=== PATIENT | female | born 2000 | race Caucasian/White ===

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

== ENCOUNTER 2018-12-05 14:56 | Emergency (ER) | payer OTHER ==
[2018-12-05] MEDS ORDERED: HYDROcodone/ACETAMIN 5-325 MG* 1 TAB PO ONE (15:17)
[2018-12-05] MEDS ORDERED: Silver Sulfadiazine 1%* 20 GM TOPICAL ONE (16:18)
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
[2018-12-05 17:21] VITALS: BP 106/82
== END 2018-12-05 17:00 | disposition home or self-care (01) ==
LOC: ED 14:56
DX: T20.26XA Burn of second degree of forehead and cheek, initial encounter (principal); Z88.0 Allergy status to penicillin; X10.2XXA Contact with fats and cooking oils, initial encounter; Y92.9 Unspecified place or not applicable
CPT/HCPCS: 99282; A9270-GY

== ENCOUNTER 2019-02-19 07:30 | Emergency (ER) | payer OTHER ==
[2019-02-19] MEDS ORDERED: Lidocaine 1%* 5 ML VIAL INJ ONE (07:48)
[2019-02-19] MEDS ORDERED: Lidocaine 1% INJ* 10 MG/ML 30 ML SDV ONE (07:48)
[2019-02-19 09:07] VITALS: BP 106/70
--- NOTE | 2019-02-19 11:03 | ED ---
Upper Extremity Pain - HPI Summary HPI Summary: Patient is a 19-year-old female presents emergency department for a right elbow injury and laceration that occurred today. Patient states she slipped going down steps and hit her right elbow on a broken piece of glass on a picture frame. Patient denies head injury or loss of consciousness. Symptoms are mild in severity. Patient notes last tetanus immunization was within 5 years. Moving arm makes symptoms worse. Rest makes symptoms better. - History of Current Complaint Chief Complaint: EDLacSutureRecheck Stated Complaint: RIGHT ELBOW LACERATION PER PT Time Seen by Provider: 02/19/19 07:42 Hx Obtained From: Patient Hx Last Menstrual Period: 01/02/17 - Allergies/Home Medications Allergies/Adverse Reactions: Allergies Allergy/AdvReac Type Severity Reaction Status Date / Time amoxicillin Allergy Rash Verified 02/19/19 07:34 cephalexin Allergy Rash Verified 02/19/19 07:34 Home Medications: Home Medications NK [No Home Medications Reported] 02/19/19 [History Confirmed 02/19/19] PMH/Surg Hx/FS Hx/Imm Hx Previously Healthy: Yes - Surgical History Surgery Procedure, Year, and Place: bilateral ear tubes Infectious Disease History: No Infectious Disease History: Denies: Traveled Outside the [place] in Last 30 Days - Family History Known Family History: Positive: Non-Contributory Negative: Renal Disease - Social History Occupation: Employed Full-time Lives: With Family Alcohol Use: None Hx Substance Use: No Substance Use Type: Reports: None Hx Tobacco Use: No Smoking Status (MU): Never Smoked Tobacco Review of Systems Positive: Other - right arm injury Positive: Other - right arm laceration Neurological: Negative Negative: Headache, Syncope All Other Systems Reviewed And Are Negative: Yes Physical Exam Triage Information Reviewed: Yes Vital Signs On Initial Exam: Initial Vitals Temp Pulse Resp BP Pulse Ox 98.3 F 77 16 127/89 97 02/19/19 07:34 02/19/19 07:34 02/19/19 07:34 02/19/19 07:34 02/19/19 07:34 Vital Signs Reviewed: Yes Appearance: Positive: Well-Appearing - Pt. sitting on bed in NAD. Family present. Skin: Positive: Warm, Dry Head/Face: Positive: Normal Head/Face Inspection Eyes: Positive: Normal, EOMI Neck: Positive: Supple Musculoskeletal: Positive: Other - 2cm triangular shaped superficial laceration noted over lateral aspect of the right elbow. Bony tenderness to elbow with full ROM. Neurological: Positive: Normal, CN Intact II-III Psychiatric: Positive: Affect/Mood Appropriate Procedures - Laceration/Wound Repair 1 Location: upper extremity Description: Irregular Anesthesia: Local, 1.0%, [place] Length, Depth and Shape: 2cm triangle Betadine Prep?: No - hibiclens Laceration/Wound Explored: clean Closure: Single Layer Suture Type: Nylon Number of Sutures: 4 Layer Closure?: No Sterile Dressing Applied?: Yes Diagnostics - Vital Signs Vital Signs Temp Pulse Resp BP Pulse Ox 02/19/19 09:06 98.8 F 79 16 106/70 99 02/19/19 07:34 98.3 F 77 16 127/89 97 - Laboratory Lab Statement: Any lab studies that have been ordered have been reviewed, and results considered in the medical decision making process. Course/Dx - Course Course Of Treatment: Patient presenting with isolated right elbow injury and laceration. X-ray negative for fracture dislocation, reading per radiology. Laceration is repaired as noted above. Advised suture removal in 7-10 days. Keep the wound clean and dry. Ice and elevate intermittently. To return to the ER for redness, swelling or drainage from wound. Patient understands and agrees with plan. - Diagnoses Differential Diagnosis/HQI/PQRI: Positive: Contusion, Fracture (Closed), Hematoma, Strain, Sprain Provider Diagnoses: Laceration, Elbow contusion Discharge - Sign-Out/Discharge Documenting (check all that apply): Patient Departure Patient Received Moderate/Deep Sedation with Procedure: No - Discharge Plan Condition: Improved Disposition: HOME Patient Education Materials: Care For Your Stitches (ED) Referrals: Danny Borjas MD [Primary Care Provider] - Additional Instructions: Suture removal in 7-10 days Keep wound clean and dry Tylenol or Motrin for pain as directed Return to ER for redness, swelling, or drainage from wound - Billing Disposition and Condition Condition: IMPROVED Disposition: Home
== END 2019-02-19 09:06 | disposition home or self-care (01) ==
LOC: ED 07:30
DX: S51.011A Laceration without foreign body of right elbow, initial encounter (principal); S50.01XA Contusion of right elbow, initial encounter; W01.198A Fall on same level from slipping, tripping and stumbling with subsequent striking against other object, initial encounter; Y92.9 Unspecified place or not applicable; Z88.1 Allergy status to other antibiotic agents; Z88.0 Allergy status to penicillin
CPT/HCPCS: 12001; 99282

== ENCOUNTER 2019-10-15 17:38 | Emergency (ER) | payer OTHER ==
[2019-10-15 20:51] LABS: ABS Eosinophils 1.7 10^3/ul (0-0.6); ABS Lymphocytes 3.1 10^3/ul (1.0-4.8); ABS Monocytes 0.7 10^3/ul (0-0.8); ABS Neutrophils 6.4 10^3/ul (1.5-7.7); Eosinophil % 14.2 %; Hematocrit 43 % (35-47); Hemoglobin 14.6 g/dL (12.0-16.0); Lymphocyte % 26.1 %; Mean Corpuscular HGB Conc 34 g/dL (31-36); Mean Corpuscular Hemoglobin 31 pg (27-31); Mean Corpuscular Volume 91 fL (80-97); Mean Platelet Volume 7.5 fL (7.4-10.4); Platelet Count 290 10^3/uL (150-450); Red Blood Count 4.66 10^6 /uL (3.70-4.87); Red Cell Distribution Width 12 % (10-15); White Blood Count 11.9 10^3/uL (3.5-10.8)
[2019-10-15 21:09] LABS: ALT 9 U/L (7-52); AST 15 U/L (13-39); Albumin 4.5 g/dL (3.2-5.2); Albumin/Globulin Ratio 1.6 (1-3); Alkaline Phosphatase 100 U/L (34-104); Anion Gap 5 mmol/L (2-11); BUN/Creatinine Ratio 21.7 (8-20); Blood Urea Nitrogen 13 mg/dL (6-24); C Reactive Protein < 1.00 mg/L (<8.01); CO2 Carbon Dioxide 26 mmol/L (22-32); Calcium 9.7 mg/dL (8.6-10.3); Chloride 107 mmol/L (101-111); EGFR African American 152.7 (>60); EGFR Non-African American 126.2 (>60); Globulin 2.8 g/dL (2-4); Glucose 80 mg/dL (70-100); Potassium 3.8 mmol/L (3.5-5.0); Sodium 138 mmol/L (135-145); Total Protein 7.3 g/dL (6.4-8.9)
[2019-10-15 21:15] LABS: HCG Pregnancy < 0.60 mIU/mL
--- NOTE | 2019-10-15 21:24 | ED ---
Abdominal Pain/Female - HPI Summary HPI Summary: Patient is a 19 y/o F presenting to [facility] with complaints of intermittent diffuse chest and abdominal pain for the past week. She states that her episodes onset suddenly, last around an hour, and then resolve completely. Episodes of pain have awoken her at night. Around 1130/1200 today, 10/15/19, she had onset of a severe episode of pain and SOB secondary to this pain. appetite, vomiting and diarrhea are denied. Some nausea is endorsed. She denies similar previous episodes, PSHx of abdominal surgeries. PMHx of ADHD is noted. On triage, pain is rated 7/10. Home medications and allergies are reviewed. - History of Current Complaint Chief Complaint: EDAbdPain Stated Complaint: ABDOMINAL PAIN PER PT Time Seen by Provider: 10/15/19 21:15 Hx Obtained From: Patient Hx Last Menstrual Period: 01/02/17 Onset/Duration: Still Present Timing: Intermittent Episode Lasting Severity Currently: Severe Pain Intensity: 7 Pain Scale Used: 0-10 Numeric Location: Diffuse Radiates to: Chest Associated Signs and Symptoms: Positive: Chest Pain, Nausea. Negative: Decreased Appetite, Vomiting, Diarrhea Allergies/Adverse Reactions: Allergies Allergy/AdvReac Type Severity Reaction Status Date / Time amoxicillin Allergy Rash Verified 10/15/19 18:12 cephalexin Allergy Rash Verified 10/15/19 18:12 Trimax Allergy Hives Uncoded 10/15/19 18:12 PMH/Surg Hx/FS Hx/Imm Hx Sensory History: Denies: Hx Legally Blind, Hx Deafness Opthamlomology History: Denies: Hx Legally Blind EENT History: Denies: Hx Deafness Psychiatric History: Reports: Hx Attention Deficit Hyperactivity Disorder - Surgical History Surgery Procedure, Year, and Place: bilateral ear tubes Infectious Disease History: No Infectious Disease History: Denies: Traveled Outside the [place] in Last 30 Days - Family History Known Family History: Negative: Renal Disease - Social History Alcohol Use: None Hx Substance Use: No Substance Use Type: Reports: None Hx Tobacco Use: No Smoking Status (MU): Never Smoked Tobacco Review of Systems Positive: Chest Pain Gastrointestinal: Other - NEGATIVE - DECREASED APPETITE Positive: Abdominal Pain, Nausea. Negative: Vomiting, Diarrhea All Other Systems Reviewed And Are Negative: Yes Physical Exam - Summary Physical Exam Summary: Appearance: Well-appearing, Well-nourished, lying in bed comfortably Skin: Warm, dry, no obvious rash Eyes: sclera anicteric, no conjunctival pallor ENT: mucous membranes moist, pharynx appears normal Neck: Supple, nontender Respiratory: Clear to auscultation, no signs of respiratory distress Cardiovascular: Normal S1, S2. No murmurs. Normal distal pulses in tibial and radial bilaterally. Abdomen: Diffuse upper abdominal tenderness is noted. Soft, normal active bowel sounds present Musculoskeletal: There is tenderness of the chest at the lower sternum and costocondral junction. Strength/ROM Intact Neurological: A&Ox3, awake and alert, mentation is normal, speech is fluent and appropriate Psychiatric: affect is normal, does not appear anxious or depressed Triage Information Reviewed: Yes Vital Signs On Initial Exam: Initial Vitals Temp Pulse Resp BP Pulse Ox 99.5 F 87 16 156/93 97 10/15/19 18:04 10/15/19 18:04 10/15/19 18:04 10/15/19 18:04 10/15/19 18:04 Vital Signs Reviewed: Yes Procedures - Sedation Patient Received Moderate/Deep Sedation with Procedure: No Diagnostics - Vital Signs Vital Signs Temp Pulse Resp BP Pulse Ox 10/15/19 20:07 98.8 F 76 78 134/87 98 10/15/19 18:04 99.5 F 87 16 156/93 97 - Laboratory Lab Results: Lab Results 10/15/19 10/15/19 Range/Units 20:45 20:45 WBC 11.9 H (3.5-10.8) 10^3/uL RBC 4.66 (3.70-4.87) 10^6 /uL Hgb 14.6 (12.0-16.0) g/dL Hct 43 (35-47) % MCV 91 (80-97) fL MCH 31 (27-31) pg MCHC 34 (31-36) g/dL RDW 12 (10-15) % Plt Count 290 (150-450) 10^3/uL MPV 7.5 (7.4-10.4) fL Neut % (Auto) 53.4 % Lymph % (Auto) 26.1 % [place] % (Auto) 6.0 % Eos % (Auto) 14.2 % Baso % (Auto) 0.3 % Absolute Neuts (auto) 6.4 (1.5-7.7) 10^3/ul Absolute Lymphs (auto) 3.1 (1.0-4.8) 10^3/ul Absolute Monos (auto) 0.7 (0-0.8) 10^3/ul Absolute Eos (auto) 1.7 H (0-0.6) 10^3/ul Absolute Basos (auto) 0.0 (0-0.2) 10^3/ul Absolute Nucleated RBC 0.0 10^3/ul Nucleated RBC % 0.0 Sodium 138 (135-145) mmol/L Potassium 3.8 (3.5-5.0) mmol/L Chloride 107 (101-111) mmol/L Carbon Dioxide 26 (22-32) mmol/L Anion Gap 5 (2-11) mmol/L BUN 13 (6-24) mg/dL Creatinine 0.60 (0.51-0.95) mg/dL Est GFR ( Amer) 152.7 (>60) Est GFR (Non-Af Amer) 126.2 (>60) BUN/Creatinine Ratio 21.7 H (8-20) Glucose 80 (70-100) mg/dL Calcium 9.7 (8.6-10.3) mg/dL Total Bilirubin 0.40 (0.2-1.0) mg/dL AST 15 (13-39) U/L ALT 9 (7-52) U/L Alkaline Phosphatase 100 (34-104) U/L C-Reactive Protein < 1.00 (<8.01) mg/L Total Protein 7.3 (6.4-8.9) g/dL Albumin 4.5 (3.2-5.2) g/dL Globulin 2.8 (2-4) g/dL Albumin/Globulin Ratio 1.6 (1-3) Lipase 17 (11.0-82.0) U/L Beta HCG, Quant < 0.60 mIU/mL Result Diagrams: 10/15/19 20:45 10/15/19 20:45 Lab Statement: Any lab studies that have been ordered have been reviewed, and results considered in the medical decision making process. - Ultrasound GALLBLADDER US Ultrasound Interpretation Completed By: Radiologist Summary of Ultrasound Findings: IMPRESSION: Negative upper quadrant sonogram. No gallstones. THIS REPORT WAS REVIEWED BY DR. DAVIS. - EKG 2011 Cardiac Rate: NL - rate of 72 BPM EKG Rhythm: Sinus Rhythm Summary of EKG Findings: NSR at 72 BPM, P waves, QRS complex, and T waves are within normal limits, T waves and intervals are normal, no ischemic changes. This is a normal EKG. No STEMI. This EKG was reviewed and interpreted by Dr. Davis. Re-Evaluation - Re-Evaluation First Eval Re-Evaluation Time: 23:23 Change: Improved Comment: Patient reports improvement of pain. She is agreeable with discharge to home. Abdominal Pain Fem Course/Dx - Course Course Of Treatment: Patient is a 19 y/o F presenting to [facility] with complaints of intermittent diffuse chest and abdominal pain for the past week. She states that her episodes onset suddenly, last around an hour, and then resolve completely. Episodes of pain have awoken her at night. Around 1130/1200 today, 10/15/19, she had onset of a severe episode of pain and SOB secondary to this pain. appetite, vomiting and diarrhea are denied. Some nausea is endorsed. She denies similar previous episodes, PSHx of abdominal surgeries. There is tenderness of the chest at the lower sternum and costocondral junction. Diffuse upper abdominal tenderness is noted. EKG showed NSR at 72 BPM , P waves, QRS complex, and T waves are within normal limits, T waves and intervals are normal, no ischemic changes. This is a normal EKG. No STEMI.Bloodwork was obtained and within normal limits with exception of WBC 11.9 , absolute eos 1.7, BUN/creatinine ratio 21.7. During ED course, patient received lidocaine 15 ml PO and Maalox 30 ml PO. GALLBLADDER US IMPRESSION: Negative upper quadrant sonogram. No gallstones. Patient reports improvement of pain after medications. She is agreeable with discharge to home. She was prescribed Pepcid and will follow up with PCP within four days. - Diagnoses Provider Diagnoses: Gastritis Discharge ED - Sign-Out/Discharge Documenting (check all that apply): Patient Departure - discharge - Discharge Plan Condition: Stable Disposition: HOME Prescriptions: Famotidine TAB* [Pepcid 20 MG TAB*] 20 mg PO BID #20 tab Patient Education Materials: Gastritis (ED) Forms: *Work Release Referrals: Danny Borjas MD [Primary Care Provider] - 4 Days (if not better) - Billing Disposition and Condition Condition: STABLE Disposition: Home - Attestation Statements Document Initiated by Anisa: Yes Documenting Scribe: HAIDER SEYMOUR Provider For Whom Anisa is Documenting (Include Credential): PRATEEK DAVIS MD Scribe Attestation: IHAIDER, scribed for PRATEEK DAVIS MD on 10/16/19 at 1844. Scribe Documentation Reviewed: Yes Provider Attestation: The documentation as recorded by the HAIDER cochran accurately reflects the service I personally performed and the decisions made by me, PRATEEK DAVIS MD Status of Scribe Document: Viewed
[2019-10-15] MEDS ORDERED: Lidocaine 2% VISCOUS* 15 ML UDC PO ONE (21:25)
[2019-10-15] MEDS ORDERED: Al Hydrox/Mg Hydrox/Simet LIQ* 30 ML UDC PO ONE (21:25)
[2019-10-15 23:47] VITALS: BP 129/76
== END 2019-10-15 23:40 | disposition home or self-care (01) ==
LOC: ED 17:38
DX: K29.70 Gastritis, unspecified, without bleeding (principal); R07.89 Other chest pain; R11.0 Nausea; I49.9 Cardiac arrhythmia, unspecified; Z88.1 Allergy status to other antibiotic agents; Z88.0 Allergy status to penicillin
CPT/HCPCS: 36415; 76705; 80053; 83690; 84702; 85025; 86140; 93005; 99284; A9270-GY